=== PATIENT | female | born 1980 | race Caucasian/White ===

== ENCOUNTER → 2021-10-30 | Outpatient (CLI) | payer BC, OTHER | LOC: MAMO 08:20 | DX: Z12.31 Encounter for screening mammogram for malignant neoplasm of breast (principal) | CPT/HCPCS: 77063; 77067 ==

== ENCOUNTER → 2021-11-07 | Outpatient (CLI) | payer BC, OTHER | LOC: US 11-03 13:30 | DX: R92.2 Inconclusive mammogram (principal) | CPT/HCPCS: 76641 ==